=== PATIENT | female | born 1965 | race Caucasian/White ===

== ENCOUNTER 2020-11-16 08:57 | Outpatient (REF) | payer OTHER, SELFPAY ==
--- NOTE | 2020-11-16 09:03 | MM_ITS ---
EXAMINATION: MM SCREENING DIGITAL BREAST TOMOSYNTHESIS, BILATERAL CLINICAL INFORMATION: Screening. Asymptomatic. The lifetime risk of breast cancer based on the Tyrer-Cuzick Model is 7%. COMPARISON: Mammography: 05/03/2019, 04/30/2019, 03/15/2018, 02/17/2016, 11/05/2014 TECHNIQUE: Digital breast tomosynthesis is performed in both the craniocaudal and mediolateral oblique views along with computer-aided detection (CAD). Synthesized 2D images are generated from the tomosynthesis. FINDINGS: There are scattered areas of fibroglandular density (ACR BI-RADS breast composition Category b). There are no significant masses, abnormal calcifications, or other abnormalities. Nodular parenchymal asymmetry mid outer left breast on CC view is similar to prior studies. No developing density. The bilateral axilla and skin contours are unremarkable. MM/MM tomosynthesis screening BI IMPRESSION: No significant changes from prior studies. ASSESSMENT: BI-RADS 2: Benign RECOMMENDATION: Routine annual mammography screening. This patient's information was entered into a reminder system with a target due date for their next mammogram.
== END 2020-11-16 08:58 | disposition home or self-care (01) ==
LOC: HO.MAMMO 08:57
PROVIDERS: PCP Nurse Practitioner Family; Visit Provider Nurse Practitioner Family
DX: Z12.31 Encounter for screening mammogram for malignant neoplasm of breast (principal)
CPT/HCPCS: 77063; 77067

== ENCOUNTER 2021-01-12 08:26 | Outpatient (REF) | payer OTHER, SELFPAY ==
[2021-01-15 01:52] LABS: HPV mRNA E6/E7 rflx Not Detected (Not Detected)
== END 2021-01-12 08:27 | disposition home or self-care (01) ==
LOC: HO.LAB 08:26
PROVIDERS: PCP Nurse Practitioner Family; Visit Provider Obstetrics & Gynecology
DX: Z01.419 Encounter for gynecological examination (general) (routine) without abnormal findings (principal); Z11.51 Encounter for screening for human papillomavirus (HPV)
CPT/HCPCS: 36415; 87624; 88142

== ENCOUNTER 2021-07-01 10:59 | Emergency (ER) | payer OTHER, SELFPAY ==
--- NOTE | ~2021-07-01 | CT_ITS ---
EXAMINATION: CT HEAD WITHOUT CONTRAST CLINICAL INFORMATION: Headache, dizziness, and nausea. Hypertension. COMPARISON: November 19, 2012 TECHNIQUE: Contiguous axial imaging was performed from the skull base to vertex without intravenous administration of contrast. This CT examination was performed using dose optimization techniques as appropriate, variously including the following: *Automated exposure control *Adjustment of mA and/or kV according to patient size (this includes techniques or standardized protocols for targeted exams where dose is matched to indication/reason for exam; i.e. extremities or head) *Use of iterative reconstruction technique DLP: 717 mGy-cm FINDINGS: There is no evidence of acute intracranial hemorrhage or territorial infarction. No abnormal mass effect or midline shift is seen. Pimentel to white matter differentiation is well preserved. No extra-axial fluid collections are identified. The ventricular system is prominent for age but similar to previous study of November 19, 2012 There is no abnormal attenuation within the brain parenchyma. The osseous structures and soft tissues are normal. The mastoid air cells and visualized portions of the paranasal sinuses are well aerated. CT/CT head/brain wo con IMPRESSION: No acute intracranial pathology. Prominent ventricular system which may be related to some degree of generalized atrophy. No definite evidence to suggest hydrocephalus.
[2021-07-01 11:14] VITALS: BP 180/102; BP 199/103; PULSE 63; PULSE 70; RESP 16; TEMP 36.8; O2SAT 99; BMI 38.2
--- NOTE | 2021-07-01 11:28 | ECG_ITS ---
Test Reason : HIGH BP Blood Pressure : / mmHG Vent. Rate : 057 BPM Atrial Rate : 057 BPM P-R Int : 164 ms QRS Dur : 078 ms QT Int : 400 ms P-R-T Axes : 047 -21 017 degrees QTc Int : 389 ms Sinus bradycardia Otherwise normal ECG No previous ECGs available Referred By: Vivi Banuelos Electronically Signed By:Alhaji Gary
--- NOTE | 2021-07-01 12:00 | ED_ITS ---
HPI - General Adult General Chief complaint: General Medical Stated complaint: HIGH BP 170/102 Time Seen by Provider: 07/01/21 11:22 Source: patient and EMS Mode of arrival: EMS Limitations: no limitations History of Present Illness HPI narrative: 56-year-old female previously healthy here with complaints of generalized headache described as head pressure with nausea and dizziness for 3 days. Patient was found to be hypertensive by EMS. No history of high blood pressure. Does not take any blood pressure medications. She tells me that she has been under a lot of stress lately and feeling very anxious. She is in the process of taking care of her elderly parents and selling their home. She denies any associated vision changes, photophobia, neck pain, chest pain, shortness of breath. Related Data Previous Rx's Medication Instructions Recorded amlodipine 10 mg tablet (Norvasc) 10 mg PO DAILY #30 tab 07/01/21 finjxamafx-lmjcwyhlwcill-andwethc 1 cap PO Q6H PRN #10 cap 07/01/21 50 mg-300 mg-40 mg capsule (Fioricet) Allergies Allergy/AdvReac Type Severity Reaction Status Date / Time hydromorphone [From DILAUDID] Allergy Unknown NAUSEA & Unverified 08/13/20 14:46 VOMITING metoclopramide [From REGLAN] Allergy Unknown AGITATION Unverified 08/13/20 14:46 Pt states no known allergy to Allergy Unknown Uncoded 07/26/19 00:00 Review of Systems Review of Systems: Yes all other systems are reviewed and are negative Constitutional: Constitutional: Reports no additional constitutional complaints, Denies body ache(s), Denies chills, Denies fever(s), Reports headache(s) and Denies weakness Eyes: Eyes: Reports no additional eye complaints and Denies change in vision ENT: Reports system reviewed and no additional complaints, except as documented, Reports dizziness, Reports headache(s), Denies nasal congestion, Denies nasal discharge and Denies neck pain Cardiovascular: Cardiovascular: Reports no additional cardiovascular complaints, Denies chest pain, Denies leg edema and Denies dyspnea Respiratory: Respiratory: Reports no additional respiratory complaints, Denies cough and Denies dyspnea Gastrointestinal: Gastrointestinal: Reports no additional gastrointestinal complaints, Denies abdominal pain, Denies diarrhea, Reports nausea and Denies vomiting Genitourinary: Genitourinary: Reports no additional female genitourinary complaints and Denies urinary incontinence Musculoskeletal: Musculoskeletal: Reports no additional musculoskeletal complaints, Denies back pain, Denies arthralgias, Denies joint swelling, Denies neck pain, Denies numbness and Denies tingling Integumentary/Breasts: Skin/Breast: Reports system reviewed and no additional complaints, except as docu and Denies rash Neurologic: Reports system reviewed and no additional complaints, except as documented, Denies Abnormal speech present, Reports dizziness, Reports headache(s), Denies numbness, Denies tingling and Denies weakness [facility] Past Medical History Attestation statement: The following information was validated with the patient. Source: old records reviewed and nursing notes reviewed Surgical History H/O bilateral oophorectomy H/O knee surgery Social History Social History Advance Directives: No Advance Directives Information Provided: Yes Physical Exam Vital Signs: Vital Signs: Last Vital Signs Temp 98.3 F 07/01/21 11:14 Pulse 58 07/01/21 14:21 Resp 16 07/01/21 14:21 BP 152/86 H 07/01/21 14:37 Pulse Ox 99 07/01/21 14:21 Body Mass Index 38.2 Const: General: cooperative, healthy appearing, comfortable and no acute distress Orientation/consciousness: patient oriented x3 Limitations: no limitations HENMT: Head: Yes normal to inspection Ears: hearing grossly normal bilaterally and TM's normal bilaterally General nose exam: Normal external nose present Face and sinus: Yes normal facial exam Mouth: Normal oral and palatal mucosa present Throat: Yes posterior oropharynx normal, Yes tonsils normal and Yes uvula midline Eyes: General: appearance normal, both eyes and all related structures Visual Tolentino: normal visual tolentino by confrontation Alignment and Position: alignment normal Periorbital: periorbital findings normal Eyelids: Yes eyelids normal Conjunctivae: conjunctivae normal Sclerae: sclerae normal Corneas: corneas normal Pupils: Equal, round and reactive pupils present EOM: EOMs intact bilaterally Direct Ophthalmoscopy: normal light reflex Neck: Neck: Yes normal visual inspection, Yes full ROM, Yes no lymphadenopathy and Yes no meningeal signs Chest: Chest palpation & inspection: normal inspection of the chest Resp: Effort & Inspection: normal respiratory effort Auscultation: clear to auscultation bilaterally Cardio: Rate: regular rate Rhythm: regular rhythm Peripheral pulses: Peripheral pulses 2+ throughout GI: Inspection: Yes normal to inspection Palpation (GI): Soft to palpation and nontender Auscultation: normal bowel sounds : General: Yes no CVA tenderness Back/Spine/Pelvis: Back: no CVA tenderness Thoracic/Lumbar Spine: thoracic and lumbar spine normal to inspection Skin: General skin exam: no rashes or lesions noted Neuro: General: patient oriented x3, no meningeal signs, no focal motor deficits and normal sensation to monofilament Cranial nerves: Yes CN's II-XII intact bilaterally, Yes Equal, round and reactive pupils present, Yes Bilaterally intact EOM present, Yes Nystagmus not present and Yes Midline tongue present Cognition (Neuro): normal cognition Speech: No Abnormal speech present Gait exam (Neuro): Normal gait present Motor exam (neuro): 5/5 motor strength present throughout Sensory Exam: Normal double simultaneous stimulation for sensation Coordination: [id number]-[id number] test normal, ffph-yz-[id number] test normal and tandem gait normal Extrem: General: Yes normal to inspection Course Course Course Narrative: 56-year-old female previously healthy here with complaints of generalized headache described as pressure with nausea and intermittent dizziness for 3 days. Found to be hypertensive by EMS. No history of same. Not on any blood pressure medications. Normal neurological exam. Noted to be hypertensive on arrival 199/103. Does report increased stress and anxiety at home due to multiple life stressors. Will check labs, UA, EKG. Will give p.o. antihypertensive and reassess 1315-repeat blood pressure 172/95. Goal 160/80. Will give 5mg norvasc and re- assess. Continued head pressure, now more behind left eye with no visual changes. Will check Ct head to r/o ICH. Give PO fiorcet and re-asess. 1600-CT negative. Blood pressure 152/85. Head pressure is improved. Discussed with patient that blood pressure is likely multifactorial. Consider migraine, anxiety, stress, underlying hypertension. Will start her on 10 mg daily of Norvasc. She has follow-up on Monday with her primary care. Reviewed worrisome signs and symptoms and when to return to the emergency department. Comfortable discharge home. Medical Decision Making MDM Narrative Medical decision making narrative: Hypertensive urgency, migraine, anxiety Medical Records Medical records reviewed: Yes I reviewed the patient's medical records. Lab Data Lab results reviewed: Yes I reviewed the patient's lab results. Result diagrams: 07/01/21 12:12 07/01/21 12:12 Labs: Lab Results 07/01/21 07/01/21 07/01/21 Range/Units 12:12 12:12 12:12 WBC 5.5 (4.8-10.8) X10*3/uL RBC 4.57 (4.20-5.50) X10*6/uL Hgb 12.4 (12.0-16.0) g/dl Hct 38.3 (37-47) % MCV 83.8 (80-98) fL MCH 27.1 (27.0-33.0) pg MCHC 32.4 (31.0-35.0) g/dl RDW 13.8 (11.0-16.0) % Plt Count 162 (160-400) X10*3/uL MPV 12.0 (9.4-12.3) fL Immature Gran % (Auto) 0.2 (0.0-0.4) % Neut % (Auto) 62.7 (45-73) % Lymph % (Auto) 27.1 (20-40) % Larimer % (Auto) 7.6 (2-11) % Eos % (Auto) 2.0 (0-4) % Baso % (Auto) 0.4 (0-2) % Lymph # (Auto) 1.5 (1.2-4.9) X10*3/uL Larimer # (Auto) 0.4 (0.1-1.2) X10*3/uL Eos # (Auto) 0.1 (0.0-0.4) X10*3/uL Baso # (Auto) 0.0 (0.0-0.2) X10*3/uL Abs Immat Gran (auto) 0.01 (0.00-0.03) X10*3/uL Absolute Neuts (auto) 3.5 (2.0-8.3) X10*3/uL Absolute Nucleated RBC 0.000 (0.0-0.012) X10*3/uL Nucleated RBC % (auto) 0.0 (0.0-0.2) /100WBC Sodium 141 (135-145) mmol/L Potassium 4.0 (3.3-5.1) mmol/L Chloride 106 (96-108) mmol/L Carbon Dioxide 28 (22-29) mmol/L Anion Gap 11 L (12-20) BUN 21 H (9-16) mg/dL Creatinine 0.80 (0.5-1.4) mg/dL Estim Creat Clear Calc 95.2 Estimated GFR > 60 Random Glucose 102 (60-115) mg/dL Calcium 10.2 (8.4-10.2) mg/dL Total Bilirubin 0.3 (0.0-1.0) mg/dL Direct Bilirubin < 0.2 (0.0-0.5) mg/dL AST 21 (5-31) U/L ALT 23 (0-31) U/L Alkaline Phosphatase 73 (39-117) U/L Troponin I High Sens 4.0 (<3.5-17.0) ng/L Total Protein 6.6 (6.5-8.0) g/dL Albumin 3.9 (3.5-5.0) g/dL Urine Color Urine Appearance Urine pH (5.0-8.0) Ur Specific Billings (1.005-1.025) Urine Protein (NEG-TRACE) MG/DL Urine Glucose (UA) (NEG) MG/DL Urine Ketones (NEG) MG/DL Urine Blood (NEG) Urine Nitrite (NEG) Ur Leukocyte Esterase (NEG) 07/01/21 Range/Units 12:51 WBC (4.8-10.8) X10*3/uL RBC (4.20-5.50) X10*6/uL Hgb (12.0-16.0) g/dl Hct (37-47) % MCV (80-98) fL MCH (27.0-33.0) pg MCHC (31.0-35.0) g/dl RDW (11.0-16.0) % Plt Count (160-400) X10*3/uL MPV (9.4-12.3) fL Immature Gran % (Auto) (0.0-0.4) % Neut % (Auto) (45-73) % Lymph % (Auto) (20-40) % Larimer % (Auto) (2-11) % Eos % (Auto) (0-4) % Baso % (Auto) (0-2) % Lymph # (Auto) (1.2-4.9) X10*3/uL Larimer # (Auto) (0.1-1.2) X10*3/uL Eos # (Auto) (0.0-0.4) X10*3/uL Baso # (Auto) (0.0-0.2) X10*3/uL Abs Immat Gran (auto) (0.00-0.03) X10*3/uL Absolute Neuts (auto) (2.0-8.3) X10*3/uL Absolute Nucleated RBC (0.0-0.012) X10*3/uL Nucleated RBC % (auto) (0.0-0.2) /100WBC Sodium (135-145) mmol/L Potassium (3.3-5.1) mmol/L Chloride (96-108) mmol/L Carbon Dioxide (22-29) mmol/L Anion Gap (12-20) BUN (9-16) mg/dL Creatinine (0.5-1.4) mg/dL Estim Creat Clear Calc Estimated GFR Random Glucose (60-115) mg/dL Calcium (8.4-10.2) mg/dL Total Bilirubin (0.0-1.0) mg/dL Direct Bilirubin (0.0-0.5) mg/dL AST (5-31) U/L ALT (0-31) U/L Alkaline Phosphatase (39-117) U/L Troponin I High Sens (<3.5-17.0) ng/L Total Protein (6.5-8.0) g/dL Albumin (3.5-5.0) g/dL Urine Color YELLOW Urine Appearance CLEAR Urine pH 7.5 (5.0-8.0) Ur Specific Billings 1.015 (1.005-1.025) Urine Protein NEG (NEG-TRACE) MG/DL Urine Glucose (UA) NEG (NEG) MG/DL Urine Ketones NEG (NEG) MG/DL Urine Blood NEG (NEG) Urine Nitrite NEG (NEG) Ur Leukocyte Esterase NEG (NEG) Imaging Data CT scan - head: Attestation: I personally reviewed and interpreted this imaging study as follows: Radiologist's impression: FINDINGS: There is no evidence of acute intracranial hemorrhage or territorial infarction. No abnormal mass effect or midline shift is seen. Pimentel to white matter differentiation is well preserved. No extra-axial fluid collections are identified. The ventricular system is prominent for age but similar to previous study of November 19, 2012 There is no abnormal attenuation within the brain parenchyma. The osseous structures and soft tissues are normal. The mastoid air cells and visualized portions of the paranasal sinuses are well aerated. ? CT/CT head/brain wo con IMPRESSION: No acute intracranial pathology. ? Prominent ventricular system which may be related to some degree of generalized atrophy. No definite evidence to suggest hydrocephalus. ECG Data Attestation: I personally reviewed and interpreted this ECG as follows: Interpretation: Sinus bradycardia with a rate of 57, normal MI, normal QRS, nor mal QT Discharge Plan Discharge Clinical Impression: Hypertension, Migraine Patient Disposition: Home, Self-Care Instructions: Migraine Headache (ED), Hypertension (ED) Additional Instructions: Limit caffeine and salt in the diet Follow-up as scheduled with your primary care doctor Prescriptions: New amlodipine [Norvasc] 10 mg tablet 10 mg PO DAILY Qty: 30 RF: 0 nigeqpuutf-dwlyymptffwxy-hqfi [Fioricet] 50-300-40 mg capsule 1 cap PO Q6H PRN (Reason: pain) Qty: 10 RF: 0 Referrals: Edmund Ledesma [Primary Care Provider] - 2 days Interventions: ED Discharge Assessment Last Done: 07/01/21 16:12 Discharge Date/Time: 07/01/21 16:12
[2021-07-01 12:16] VITALS: BP 188/102; PULSE 56
[2021-07-01] MEDS: amLODIPine Besylate 5 MG TABLET PO ×2 (12:16→13:38)
[2021-07-01 12:17] LABS: MANUAL DIFF FLAG NO
[2021-07-01 12:18] LABS: Basophils Percent Auto 0.4 % (0-2); Eosinophils Absolute Auto 0.1 X10*3/uL (0.0-0.4); Hematocrit 38.3 % (37-47); Hemoglobin 12.4 g/dl (12.0-16.0); Imm Gran Abs Auto 0.01 X10*3/uL (0.00-0.03); Imm Gran Pct Auto 0.2 % (0.0-0.4); Lymphocytes Absolute Auto 1.5 X10*3/uL (1.2-4.9); Lymphocytes Percent Auto 27.1 % (20-40); Mean Corpuscular HGB Conc 32.4 g/dl (31.0-35.0); Mean Corpuscular Hemoglobin 27.1 pg (27.0-33.0); Mean Corpuscular Volume 83.8 fL (80-98); Monocytes Absolute Auto 0.4 X10*3/uL (0.1-1.2); Monocytes Percent Auto 7.6 % (2-11); Neutrophils Absolute Auto 3.5 X10*3/uL (2.0-8.3); Neutrophils Percent Auto 62.7 % (45-73); Platelet Count 162 X10*3/uL (160-400); Red Blood Count 4.57 X10*6/uL (4.20-5.50); Red Cell Distribution Width 13.8 % (11.0-16.0); White Blood Count 5.5 X10*3/uL (4.8-10.8)
[2021-07-01 12:50] VITALS: BP 172/103; PULSE 53; RESP 16; O2SAT 98
[2021-07-01 13:01] LABS: Alanine Aminotransferase 23 U/L (0-31); Albumin Level 3.9 g/dL (3.5-5.0); Alkaline Phosphatase 73 U/L (39-117); Anion Gap 11 (12-20); Aspartate Amino Transferase 21 U/L (5-31); Bilirubin Direct < 0.2 mg/dL (0.0-0.5); Bilirubin Total 0.3 mg/dL (0.0-1.0); Blood Urea Nitrogen 21 mg/dL (9-16); Calcium 10.2 mg/dL (8.4-10.2); Carbon Dioxide 28 mmol/L (22-29); Chloride 106 mmol/L (96-108); Creatinine Clr Calc Pharmacy 95.2; Estimated Glomerular Filt Rate > 60; Glucose Random 102 mg/dL (60-115); Sodium 141 mmol/L (135-145); Total Protein 6.6 g/dL (6.5-8.0)
[2021-07-01 13:02] LABS: Glucose Urine UA NEG (NEG); Leukocyte Esterase Urine NEG (NEG); Nitrite Urine NEG (NEG); PH 7.5 (5.0-8.0); Specific Gravity - Urine 1.015 (1.005-1.025); Urine Blood NEG (NEG); Urine Ketones NEG (NEG); Urine Protein NEG (NEG-TRACE)
[2021-07-01 13:04] LABS: Appearance Urine CLEAR; Color Urine YELLOW
[2021-07-01 13:28] VITALS: BP 172/95
[2021-07-01] MEDS: 0.9 % Sodium Chloride 1,000 ML 999 ML IV (13:38)
[2021-07-01] MEDS: Butalb/Acetamin/Caff 50/325/40 TABLET 1 TAB PO (13:39)
[2021-07-01 14:21] VITALS: BP 165/85; PULSE 58; RESP 16; O2SAT 99
[2021-07-01 14:37] VITALS: BP 152/86
== END 2021-07-01 16:12 | disposition home or self-care (01) ==
PROVIDERS: Nurse Practitioner Family; Emergency Provider Emergency Medicine; PCP Hospitalist
DX: G43.909 Migraine, unspecified, not intractable, without status migrainosus (principal); I10 Essential (primary) hypertension; R42 Dizziness and giddiness; Z79.899 Other long term (current) drug therapy
CPT/HCPCS: 36415; 70450; 80048; 80076; 81003; 84484; 85025; 93005; 99285

== ENCOUNTER 2021-12-06 10:57 | Outpatient (REF) | payer OTHER, SELFPAY ==
--- NOTE | ~2021-12-06 | MM_ITS ---
EXAMINATION: MM SCREENING DIGITAL BREAST TOMOSYNTHESIS, BILATERAL CLINICAL INFORMATION: Screening. Asymptomatic. The lifetime risk of breast cancer based on the Tyrer-Cuzick Model is 8%. COMPARISON: Mammography: 11/16/2020, 05/03/2019, 04/30/2019, 03/15/2018 TECHNIQUE: Digital breast tomosynthesis is performed in both the craniocaudal and mediolateral oblique views along with computer-aided detection (CAD). Synthesized 2D images are generated from the tomosynthesis. Additional right MLO view is provided. FINDINGS: There are scattered areas of fibroglandular density (ACR BI-RADS breast composition Category b). There are no significant masses, abnormal calcifications, or other abnormalities. There is no developing density. There is no architectural abnormality. No abnormal calcifications. The skin contours are unremarkable. MM/MM tomosynthesis screening BI IMPRESSION: No mammographic evidence of malignancy. ASSESSMENT: BI-RADS 1: Negative RECOMMENDATION: Routine annual mammography screening. This patient's information was entered into a reminder system with a target due date for their next mammogram.
== END 2021-12-06 10:58 | disposition home or self-care (01) ==
LOC: HO.MAMMO 10:57
PROVIDERS: Visit Provider Hospitalist
DX: Z12.31 Encounter for screening mammogram for malignant neoplasm of breast (principal)
CPT/HCPCS: 77063; 77067

== ENCOUNTER 2022-01-18 08:29 | Outpatient (REF) | payer OTHER, SELFPAY ==
[2022-01-18 10:30] LABS: HBsAGNum1 0.21 S/CO (0.00-0.99); HIV AB/AG Nonreactive (Nonreactive); HIV Num 1 0.07 S/CO (0.00-0.99); Hepatitis B Surface Antigen Negative (Negative)
[2022-01-18 10:33] LABS: ~HepC Num1 0.15 S/CO (0.00-0.79); ~Hepatitis C Antibody Nonreactive (Nonreactive)
[2022-01-18 13:46] LABS: CT PCR NOT DETECTED (Not Detect.); NG PCR NOT DETECTED (Not Detect.)
[2022-01-19 08:23] LABS: Syphilis Screen Nonreactive (Nonreactive)
[2022-01-19 11:17] LABS: BV Int Neg Control Negative (Negative); BV Int Pos Control Positive (Positive)
== END 2022-01-18 08:30 | disposition home or self-care (01) ==
LOC: HO.LAB 08:29
PROVIDERS: PCP Hospitalist; Visit Provider Obstetrics & Gynecology
DX: Z01.419 Encounter for gynecological examination (general) (routine) without abnormal findings (principal); R32 Unspecified urinary incontinence; Z11.8 Encounter for screening for other infectious and parasitic diseases; Z11.59 Encounter for screening for other viral diseases; Z11.4 Encounter for screening for human immunodeficiency virus [HIV]; Z90.722 Acquired absence of ovaries, bilateral; Z88.6 Allergy status to analgesic agent; Z88.8 Allergy status to other drugs, medicaments and biological substances
CPT/HCPCS: 36415; 86780; 86803; 87340; 87389; 87480; 87491; 87510; 87591; 87660

== ENCOUNTER 2022-12-20 09:09 | Outpatient (REF) | payer OTHER, SELFPAY ==
--- NOTE | ~2022-12-20 | MM_ITS ---
EXAMINATION: MM SCREENING DIGITAL BREAST TOMOSYNTHESIS, BILATERAL CLINICAL INFORMATION: Screening. Asymptomatic. The lifetime risk of breast cancer based on the Tyrer-Cuzick Model is 7%. COMPARISON: Mammography: December 06, 2021 and studies dating back to February 17, 2016 TECHNIQUE: Digital breast tomosynthesis is performed in both the craniocaudal and mediolateral oblique views along with computer-aided detection (CAD). Synthesized 2D images are generated from the tomosynthesis. FINDINGS: There are scattered areas of fibroglandular density (ACR BI-RADS breast composition Category b). There are no significant masses, abnormal calcifications, or other abnormalities. MM/MM tomosynthesis screening BI IMPRESSION: No significant changes from prior exam. ASSESSMENT: BI-RADS 1: Negative RECOMMENDATION: Routine annual mammography screening. This patient's information was entered into a reminder system with a target due date for their next mammogram.
== END 2022-12-20 09:10 | disposition home or self-care (01) ==
LOC: HO.MAMMO 09:09
PROVIDERS: PCP Physician Assistant; Visit Provider Physician Assistant
DX: Z12.31 Encounter for screening mammogram for malignant neoplasm of breast (principal)
CPT/HCPCS: 77063; 77067

== ENCOUNTER 2024-12-24 08:06 | Emergency (ER) | payer OTHER, SELFPAY ==
--- NOTE | ~2024-12-24 | CT_ITS ---
EXAMINATION: CT HEAD WITHOUT CONTRAST (STROKE PROTOCOL) CLINICAL INFORMATION: Stroke protocol. Left-sided vision changes and gait changes. COMPARISON: 07/01/2021 CT head. TECHNIQUE: Contiguous axial imaging was performed from the skull base to vertex without intravenous administration of contrast. This CT examination was performed using dose optimization techniques as appropriate, variously including the following: *Automated exposure control *Adjustment of mA and/or kV according to patient size (this includes techniques or standardized protocols for targeted exams where dose is matched to indication/reason for exam; i.e. extremities or head) *Use of iterative reconstruction technique FINDINGS: There is no evidence of intracranial hemorrhage or extra-axial fluid collection. There is no mass effect, or edema. No CT evidence of acute territorial infarct. Ventricles are mildly dilated out of proportion to sulcal and cisternal prominence, a stable finding which most likely represents central volume loss. No hydrocephalus. No midline shift. Negative hyperdense MCA sign. Negative insular ribbon sign. There are minimal supratentorial periventricular white matter hypodensities, in keeping with small vessel ischemia. Normal sella. Mild atheromatous calcification of the bilateral carotid siphons and V4 segments vertebral arteries bilaterally. Globes and orbital contents image normally. No extracranial soft tissue abnormalities. The paranasal sinuses, mastoid air cells, and tympanic cavities are normally aerated. No suspicious bony abnormalities. CT/CT head for STROKE IMPRESSION: 1. No acute intracranial abnormality. No CT evidence of acute territorial infarct, intracranial hemorrhage, mass effect, or edema. Electronically signed by: Cristian Monk MD 12/24/2024 09:28 AM [facility] [place]
--- NOTE | ~2024-12-24 | CT_ITS ---
EXAMINATION: CTA NECK WITH CONTRAST (STROKE) CTA BRAIN WITH CONTRAST (STROKE) CLINICAL INFORMATION: Suspect acute stroke. Left-sided visual changes, headache, gait instability. Assess for major vessel occlusion. COMPARISON: No prior CT angiography. TECHNIQUE: CT angiography head and neck performed following intravenous bolus administration 70 mL of Omnipaque 350 contrast. Helical imaging was performed in the axial plane from the aortic arch to the skull vertex. A [address] head was also obtained. The data was processed at the imaging technologist's workstation for generation of MIP sequences. Angled MIPs and volume rendered reformatted images were also generated at an offline 3D workstation. Stenoses are assessed in accordance with NASCET criteria unless otherwise indicated. This CT examination was performed using dose optimization techniques as appropriate, variously including the following: *Automated exposure control *Adjustment of mA and/or kV according to patient size (this includes techniques or standardized protocols for targeted exams where dose is matched to indication/reason for exam; i.e. extremities or head) *Use of iterative reconstruction technique FINDINGS: NECK CTA: -AORTIC ARCH: Normal in caliber. Three-vessel branching pattern. -GREAT VESSEL ORIGINS: Patent without stenoses. -RIGHT COMMON CAROTID ARTERY: Normal in course and caliber to the level of the bifurcation. -CERVICAL RIGHT INTERNAL CAROTID ARTERY: Normal opacification without focal stenosis or occlusion. Partial cervical loop. -LEFT COMMON CAROTID ARTERY: Normal in course and caliber to the level of the bifurcation. -CERVICAL LEFT INTERNAL CAROTID ARTERY: Normal opacification without focal stenosis or occlusion. Partial cervical loop. -CERVICAL RIGHT VERTEBRAL ARTERY: Codominant. Patent origin. Vessel is normal in course and caliber into the skull base. -CERVICAL LEFT VERTEBRAL ARTERY: Codominant. Patent origin. Vessel is normal in course and caliber into the skull base. OTHER, SOFT TISSUES: -No mass or abnormal adenopathy in the neck soft tissues. No abnormal fluid collections. -Mild heterogeneity of the thyroid gland without nodules seen. -Imaged lung apices are clear allowing for expiratory appearance. CTA OF THE BRAIN: -INTRACRANIAL INTERNAL CAROTID ARTERIES: Calcific atherosclerotic disease of the intracranial internal carotid arteries without occlusion or flow-limiting stenosis. -RIGHT ANTERIOR CEREBRAL ARTERY: Normal A1 segment. Normal arborization of the distal segments. -LEFT ANTERIOR CEREBRAL ARTERY: Normal A1 segment. Normal arborization of the distal segments. -ANTERIOR COMMUNICATING ARTERY: Normal. -RIGHT MIDDLE CEREBRAL ARTERY: Normal M1 segment of the MCA without focal stenosis or occlusion. Normal arborization of the distal segments. -LEFT MIDDLE CEREBRAL ARTERY: Normal M1 segment of the MCA without focal stenosis or occlusion. Normal arborization of the distal segments. -RIGHT VERTEBRAL ARTERY V4: Normal in course and caliber. There is a right AICA/PICA. -LEFT VERTEBRAL ARTERY V4: Normal in course and caliber. Extradural origin of the PICA branch. -BASILAR ARTERY: Normal without focal stenosis or occlusion. Normal appearance of the proximal superior cerebellar arteries. Normal basilar tip. -RIGHT POSTERIOR CEREBRAL ARTERY: Normal P1 segment. Normal opacification of the distal [employer] segments. -LEFT POSTERIOR CEREBRAL ARTERY: Normal P1 segment. Normal opacification of the distal [employer] segments. -POSTERIOR COMMUNICATING ARTERIES: Normal opacification of the superior sagittal, straight, transverse, and sigmoid sinuses. No venous thrombosis. CT/CT angio head neck STROKE IMPRESSION: 1. Major cervical and intracranial arterial vasculature shows no evidence of significant stenosis, occlusion, dissection, or aneurysm. Electronically signed by: Cristian Monk MD 12/24/2024 09:41 AM EST
[2024-12-24 08:08] VITALS: BP 148/91; PULSE 76; RESP 18; TEMP 36.9; O2SAT 98; BMI 40.0
--- NOTE | 2024-12-24 08:12 | ECG_ITS ---
Test Reason : r/o stroke Blood Pressure : */* mmHG Vent. Rate : 67 BPM Atrial Rate : 67 BPM P-R Int : 160 ms QRS Dur : 80 ms QT Int : 390 ms P-R-T Axes : 51 -17 18 degrees QTcB Int : 412 ms Normal sinus rhythm Normal ECG When compared with ECG of 01-Jul-2021 13:16, No significant change was found Referred By: Generic ED Physician Electronically Signed By: ADALBERTO WILSON
[2024-12-24 08:30] LABS: Glucose, Whole Blood 124 mg/dL (60-115)
--- NOTE | 2024-12-24 08:43 | ED_ITS ---
HPI - Headache General Chief Complaint: Headache Stated Complaint: Blurred vision, dizziness Time Seen by Provider: 12/24/24 08:28 History of Present Illness HPI Narrative: Patient is a 59-year-old female with a history of migraine headaches in the past. Presents today with having sudden onset of prism like vision out of the left eye. Followed by headache on the left side. Followed by balance being off. Patient was sent into the ED immediately. Has no history of diabetes positive history of hypertension no history of MD no family history of MD no history of smoking. No recreational drug use. Last known well time was by half an hour ago. Patient not on blood thinners. Related Data Previous Rx's ?Medication ?Instructions ?Recorded amlodipine 10 mg tablet (Norvasc) 10 mg PO DAILY #30 tabs 07/01/21 ibuprofen 400 mg tablet 400 mg PO Q6H PRN pain #20 tabs 12/24/24 ondansetron 4 mg disintegrating 4 mg PO TID PRN nausea and 12/24/24 tablet vomiting 5 days #10 tabs Allergies Allergy/AdvReac Type Severity Reaction Status Date / Time hydromorphone [From DILAUDID] Allergy Unknown NAUSEA & Verified 12/24/24 08:11 VOMITING metoclopramide [From REGLAN] Allergy Unknown AGITATION Verified 12/24/24 08:11 Review of Systems 2 Review of Systems: No fever no chills no chest pain or shortness of breath No focal weakness PMFSH Past Medical History Attestation statement: The following information was validated with the patient. Medical History Anxiety Surgical History Hx of section H/O bilateral oophorectomy H/O knee surgery Social History Social History Patient Tobacco Use Status: Never used Tobacco Smoked in Last 30 Days: No Use of substances other than those prescribed or required for medical reasons: No Advance Directives: Yes Advance Directives Information Provided: Yes Advance Directives on File: No Do you have a plan to hurt others: No Plan Patient : No Physical Exam 2 Vital Signs: Vital Signs: Last Vital Signs Temp 97.9 F 12/24/24 09:20 Pulse 64 12/24/24 09:20 Resp 18 12/24/24 09:20 BP 142/83 H 12/24/24 09:20 Pulse Ox 97 12/24/24 09:20 O2 Del Method Room Air 12/24/24 09:20 BMI result Body Mass Index 40.0 Appearance: Alert. Oriented X3. No acute distress. Eyes: Pupils equal, round and reactive to light. ENT: Pharynx normal. Neck: Normal inspection. Neck supple. No lymph nodes noted. No crepitus CVS: Normal heart rate and rhythm. Pulses normal. Normal S1 and S2 Respiratory: No respiratory distress. Breath sounds normal. No Wheezing. No rales Abdomen: Soft and nontender. No rigidity. No distention. good BS x4 Skin: Skin warm and dry. Normal skin color. Normal skin turgor. Extremities: No lower extremity edema. Neurovascular intact to all extremities. No Lacerations. No Rash Neuro: Oriented X 3. No motor deficit. No sensory deficit. Moving all extermities. No slurred speech NIH Stroke Scale Internal: Initial- Upon Arrival Time: 08:45 Level of Consciousness: Alert Level of Consciousness Questions: Answers both questions correctly Level of Consciousness Commands: Performs both tasks correctly Best Gaze: Normal Visual: No visual loss Facial Palsy: Normal Motor Arm (Right): No drift Motor Arm (Left): No drift Motor Leg (Right): No drift Motor Leg (Left): No drift Limb Ataxia: Absent Sensory: Normal Best Language: No aphasia Dysarthia: Normal Extinction and Inattention: No abnormality Score: 0 Medications Administered Discontinued Medications Generic Name Dose Route Start Last Admin Trade Name Allegra PRN Reason Stop Dose Admin Diphenhydramine HCl 25 mg 12/24/24 08:28 12/24/24 09:13 Diphenhydramine Hcl 50 Mg/Ml Vial IVPUSH 12/24/24 08:29 25 mg ONCE ONE Administration Iohexol 100 ml 12/24/24 08:55 12/24/24 08:56 Iohexol 350 Mg/Ml 100 Ml Infus..Btl IV 12/24/24 08:56 70 ml ONCE ONE Administration Ketorolac Tromethamine 30 mg 12/24/24 09:43 12/24/24 10:24 Ketorolac Tromethamine 30 Mg/Ml Vial IVPUSH 12/24/24 09:44 30 mg ONCE ONE Administration Prochlorperazine Edisylate 10 mg 12/24/24 08:30 12/24/24 09:13 Prochlorperazine Edisylate 10 Mg/2 Ml Vial IVPUSH 12/24/24 08:31 10 mg ONCE ONE Administration Medical Decision Making Medical Decision Making [facility] Narrative: A stroke alert was called initially as patient had some dizziness some changes in vision and some headache. I my exam patient's NIH stroke scale was 0. CT scan of the head by my interpretation was grossly negative for any acute evidence of bleeding. I reviewed radiology's reading of the CT head. CTA was reviewed by Radiology grossly was negative for any large vessel occlusion. Patient given migraine cocktail as she had change in vision followed by headache. Followed by dizziness. After the migraine cocktail was given including Compazine Benadryl Toradol. Symptomatically feels improved. Patient is sleeping. On repeat exam patient neurologically still intact. NIH stroke scale was unchanged at 0. More likely patient's symptoms consistent with migraine. Patient's sugar was normal there is no evidence for hypoglycemia. Electrolytes were otherwise unremarkable. Will discharge patient home. Patient has a history migraine . No fever no chills no signs to suggest meningitis. I am rechecking patient headache is now mostly gone. Dizziness is completely gone. Patient has no evidence for bleed because the CT head was grossly negative after about 45 minutes of headache. Patient's CT angio was negative for any acute evidence of aneurysm. She is currently in stable condition. Will discharge Differential Diagnosis Differential Diagnoses: The differential diagnosis associated with the presentation includes Migraine, stroke, vertigo versus bleed versus hypoglycemia Admission/Observation Consideration of admission/observation: Escalation of care including admission/observation considered Lab Data [facility] Lab Attestation statement: I reviewed the patient's lab results. 12/24/24 09:12 12/24/24 09:12 Labs: Lab Results 12/24/24 12/24/24 12/24/24 Range/Units 08:27 09:11 09:12 WBC 4.3 L (4.8-10.8) X10*3/uL RBC 4.35 (4.20-5.50) X10*6/uL Hgb 11.8 L (12.0-16.0) g/dl Hct 35.6 L (37.0-47.0) % MCV 81.8 (80.0-98.0) fL MCH 27.1 (27.0-33.0) pg MCHC 33.1 (31.0-35.0) g/dl RDW 14.4 (11.0-16.0) % Plt Count 156 L (160-400) X10*3/uL MPV 11.2 (9.4-12.3) fL Immature Gran % (Auto) 0.2 (0.0-0.4) % Neut % (Auto) 59.5 (45-73) % Lymph % (Auto) 27.9 (20-40) % [place] % (Auto) 9.6 (2-11) % Eos % (Auto) 2.6 (0-4) % Baso % (Auto) 0.2 (0-2) % Lymph # (Auto) 1.2 (1.2-4.9) X10*3/uL [place] # (Auto) 0.4 (0.1-1.2) X10*3/uL Eos # (Auto) 0.1 (0.0-0.4) X10*3/uL Baso # (Auto) 0.0 (0.0-0.2) X10*3/uL Abs Immat Gran (auto) 0.01 (0.00-0.03) X10*3/uL Absolute Neuts (auto) 2.5 (2.0-8.3) x10*3/uL Absolute Nucleated RBC 0.000 (0.0-0.012) X10*3/uL Nucleated RBC % (auto) 0.0 (0.0-0.2) /100WBC PT 11.5 (10.9-12.4) SEC INR 1.0 (0.9-1.1) Sodium 137 (135-145) mmol/L Potassium 4.5 (3.3-5.1) mmol/L Chloride 108 (96-108) mmol/L Carbon Dioxide 24 (22-29) mmol/L Anion Gap 10 L (12-20) BUN 15 (9-16) mg/dL Creatinine 0.78 (0.5-1.4) mg/dL Estim Creat Clear Calc 96.6 Estimated GFR > 60 POC Glucose 124 H (60-115) mg/dL Random Glucose 93 (60-115) mg/dL Calcium 8.7 D (8.4-10.2) mg/dL Magnesium 2.1 (1.6-2.6) mg/dL Total Bilirubin 0.3 (0.0-1.0) mg/dL AST 18 (5-31) U/L ALT 14 (0-31) U/L Alkaline Phosphatase 75 (39-117) U/L Total Protein 7.0 (6.5-8.0) g/dL Albumin 3.8 (3.5-5.0) g/dL Independent Interpretation I performed an independent interpretation of an: EKG (My interpretation patient's EKG showed a sinus rhythm heart rate is 70 TN QRS QTC normal no acute ST segment elevation) and CT Scan (My interpretation patient's CT head was grossly negative no acute evidence of bleeding) Radiology Impression Discussion of test interpretation with radiology: I have reviewed the radiologist's reading. Independent Historian Clinical information obtained from an independent historian. History obtained from or confirmed by: Other (Additional history obtained through daughter) External Record Review External record reviewed: Inpatient record Chronic Conditions Patient?s care impacted by: Hypertension Discharge Plan Discharge Clinical Impression: Migraine Patient Disposition: Home, Self-Care Instructions: Migraine Headache (ED) Prescriptions: New ibuprofen 400 mg tablet 400 mg PO Q6H PRN (Reason: pain) Qty: 20 0RF ondansetron 4 mg tablet,disintegrating 4 mg PO TID PRN (Reason: nausea and vomiting) 5 Days Qty: 10 0RF No Action amlodipine [Norvasc] 10 mg tablet 10 mg PO DAILY Qty: 30 0RF Referrals: Shaw Wheeler DO [Primary Care Provider] - Print Language: Cuban
--- OUTSIDE RECORDS SUMMARY | 2024-12-24 08:54 | XMS_ITS | Patient Health Record ---
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 Ac tive Reason For Referral No Information Medications Medication SIG (Take, Route, Frequency, Duration) Notes Start Date End Date Status Feldene 20 MG 1 capsule with food Orally Once a day for 30 day(s) 07/08/2022 Not-Taking Multivitamin Active Vitamin D Active iron Active amLODIPine Besylate 10 MG 1 tablet Orall y Once a day for 30 day(s) Active Social History Tobacco Use: Social History Observation Description Date Details (start date - stop date) Never Smoker NA - NA Tobacco Use/Smoking Question Answer Notes Are you a: nonsmoker Additional Findings: Tobacco Non-User Current no n-smoker Alcohol Screen Question Answer Notes Did you have a drink contain ing alcohol in the past year? Yes How often did you have a dri nk containing alcohol in the past year? Monthly or less (1 point) Points 1 Interpretation Negative Tobacco use other than smoking: Question Answer Notes Are you an other tobacco user? 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 Plan Of Treatment Pending Test Test Name Order Date X ray : Foot, left 3V 07/08/2022 X ray : Foot, right 3V 09/22/2020 [id number] TENDON SHEATH/LIGAMENT 1 15895, J0702- Neuroma/Injection 04/06/20 23 Insurance Providers Payer Name Payer Address Payer Phone Subscriber Number Group Number Insured Name Patient Relationship to Insured Coverage Start Date Coverage End Date [employer] ([facility]) [address] [place] [address] [phone] [id number] Ziggy Broussard Other Medical (General) History Medical History History ICD Code Anxiety Back,Hip,and Knee pain Diverticulosis Headaches/Migraines Chicken pox Surgical History Surgery Date(Month/Year) - Dcompression L shoulder surgery 2006 R wrist surgery/ tendon repair 2009 partial hysterectomy 2012 knee surgery, right meniscal tear 2015
--- OUTSIDE RECORDS SUMMARY | 2024-12-24 08:54 | XMS_ITS ---
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 No Vital Signs Height 5 ft 5 in in 11/08/2023 Weight 220 lbs 11/08/2023 BMI 36.61 kg/m2 11/08/2023 Blood pressure systolic 120 mm Hg 11/08/20 23 Blood pressure diastolic 80 mm Hg 023 Encounters Encounter Location Date Provider Diagnosis [facility] [place] [address] [place] [address] 11/08/2023 Alicia Ruthyyohana Ingrown nail L60.0 Assessments Encounter Date Diagnosis (ICD Code) Assessment Notes Treatment Notes Treatment Clinical Notes Section Notes 11/08/2023 Ingrown nail (ICD-10 - L60.0) Plan Of Treatment Next Appt Details Follow Up: prn, Reason: Procedure Notes * Category Sub-Category Detail Notes Nail Avulsion Procedure A fine sterile e levator was placed between the eponychium, nail fold, and nail plate to separate the structures. A sterile nail splitter, and/or sterile 316 blade, was then used to longitudinally section the nail along its entire length through the eponychium to the area under the nail fold. The offending portion of nail was from the nail bed with a rolling action and then removed with a hemostat. No underlying bone was identified. There was minimal bleeding as hemostasis was achieved through the temporary use of either a digital tourniquet or the aforementioned local with epinephrine. A bacitracin sterile dressing was applied. Local wound aftercare instructions were discussed and dispensed. The patient was informed of both conservative and future surgical procedures to prevent recurrence. Tylenol or Motrin was recommended for pain or discomfort (72997) , Pt DEFERS matricectomy Anesthesia 3cc of 1 percent Lid ocaine Plain local anesthesic utilizing aseptic technique Location Lateral nail border , TA Progress Notes * Gloria BROUSSARDDOB:1965 (58 yo F)Acc No.[id number]:11/08/2023 Progress Note Patient:Gloria Woodard Provider:?Alicia Moore DPM :1965???Age:58 Y???Sex:Female D ate:11/08/2023 Address:[address] [place] [address] Pcp:Kallie Guillen Subjective: * Chief Complaints: * ??? PCP: 08/2023Ingrown Nail * ROS:?General/Constitutional:?Nausea?denies.?Vomiting?denies.?Hunger Thirst?denies.?Loss appetite?denies.?Chills?denies.?Fatigue?denies.?Fever?denies.?Night Sweats?denies.?Unexplained weight loss?denies.?Unexplained weight gain?denies.?HEENTM:?Dentures?denies.?Dizziness?denies.?Glasses/contacts?denies.?Retinopathy?de nies.?Blurred/double vision?denies.?TMJ?denies.?Discharge/drainage?denies.?Implants?denies.?Sore throat?denies.?Dental implants?denies.?Hard of hearing ?denies.?Difficulty chewing/swallowing/speaking?denies.?Nose bleeds?denies.?Sore mouth?denies.?Respiratory:?On Oxygen?denies.?Pneumonia/pleurisy?denies.?Bronchitis?denies.?Emphysema?denies.?C oughing?denies.?Cough blood?denies.?Shortness of breath?denies.?Wheezing?denies.?Cardiovascular:?Pacemaker?denies.?MVP?denies.?WPW?denies.?CHF?denies.?Heart attack?denies.?Septal defect?denies.?Rapid beat?denies.?Chest pain ?denies.?Atrial Fib.?denies.?Murmur/Palpitations?denies.?Gastrointestinal:?Hemorrhoids?admits.?Stomach/Abdominal pain?denies.?Dark blood stool?denies.?Irritable bowel ?denies.?Constipation?denies.?Diarrhea?denies.?Hematology:?Swelling?admits.?Clots?denies.?Varicose Veins?denies.?Bruising?denies.?Bleeding problem?denies.?Genitourinary:?Blood urine?denies.?Frequent/Painfu/urination/bladder control?denies.?Kidney stones?denies.?Infection (UTI)?denies.?Nephropathy?denies.?sex trans dis (STD)?denies.?Prostate?denies.?Musculoskeletal:?Hammertoes?denies.?Bunions?denies.?Back Pain?denies.?Muscle Cramps/ Resting?denies.?Muscle cramps / walking?denies.?Generalized aches and pains?denies.?Weakness?denies.?Integ.:?Domingo?denies.?Scars?denies.?Corns/calluses?denies.?Ingrown nails?admits.?Painful nails?denies.?Open Sores?denies.?Rashes?denies.?Neurologic:?Difficulty sleeping?denies.?Brain disorder?denies.?Numbness?denies.?Balance trouble?denies.?Confusion?denies.?Fainting/blackouts?denies.?Tingling?denies.?Tr emors?denies.? * Medical History:? * Surgical History:? -Dcompression L shoulder surgery 2006R wrist surgery/ tendon repair 2009partial hysterectomy 2011knee surgery, right meniscal tear 2014 * Hospitalization/Major Diagno stic Procedure:?Denies Past Hospitalization * Family History:?Mother: aliv e, cancer, diagnosed with Family history of arthritis, Diabetic - NIDDM, Unspecified essential hypertension, Unspecified cerebral artery occlusion with cerebral infarction.?Father: alive, poor circulation, cancer, diagnosed with Family history of arthritis, Diabetic - NIDDM, Unspecified essential hypertension.? * Social History:?Tobacco Use:?Tobacco Use/Smoking?Are you a:?nonsmoker ?Additional Findings: Tobacco Non-User?Current non-smoker ?Tobacco use other than smoking?Are you an other tobacco user??No ???Drugs/Alcohol:?Drugs?Have you used drugs other than those for medical reasons in the past 12 months??No ?Alcohol Screen?Did you have a drink containing alcohol in the past year??Yes ?How often did you have a drink containing alcohol in the past year??Monthly or less (1 point) ?Points?1 ?Interpretation?Negative ???Miscellaneous:?Caffeine: yes, 1-2 cups per day. ?Children: yes, 2. ?Exercise: yes, walking,stationary bike. ?Marital status: . 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 * Medications:?TakingamLODIPin e Besylate 10 MG Tablet 1 tablet Orally Once a dayiron Vitamin D Multivitamin Taking amLODIPine Besylate 10 MG Tablet 1 tablet Orally Once a dayTaking iron Taking Vitamin D Taking Multivitamin Not-Taking/PRNFeldene 20 MG Capsule 1 capsule with food Orally Once a dayMedication List reviewed and reconciled with the patientNot-Taking/PRN Feldene 20 MG Capsule 1 capsule with food Orally Once a dayMedication List reviewed and reconciled with the patient * Allergies:?Reglan: CNSDilaud id: vomitingyes[Allergies Verified] Objective: * Vitals:?Ht:5 ft 5 in, Wt:220 , BMI:36.61, Shoe size: 8, BP:120/80 mm Hg, Ht-cm: 165.1 cm, Wt-k.79 kg. * Examination: ???Ingrown Nail: ?INSPECTION:?Reveals nail incurvation, pain on palpation, groove hypertrophy , Lateral nail border , TA.? Assessment: * Assessment: 1.?Ingrown nail - L60.0? Plan: * Treatment: * Procedures:?Nail Avulsion:?Location?Lateral nail border , TA.?Anesthesia?3cc of 1 percent Lidocaine Plain local anesthesic utilizing aseptic technique.?Procedure?A fine sterile elevator was placed between the eponychium, nail fold, and nail plate to separate the structures. A sterile nail splitter, and/or sterile 316 blade, was then used to longitudinally section the nail along its entire length through the eponychium to the area under the nail fold. The offending portion of nail was from the nail bed with a rolling action and then removed with a hemostat. No underlying bone was identified. There was minimal bleeding as hemostasis was achieved through the temporary use of either a digital tourniquet or the aforementioned local with epinephrine. A bacitracin sterile dressing was applied. Local wound aftercare instructions were discussed and dispensed. The patient was informed of both conservative and future surgical procedures to prevent recurrence. Tylenol or Motrin was recommended for pain or discomfort (70040) , Pt DEFERS matricectomy.? * Procedure Codes:?23412 Avuls ion Plate, Modifiers: XS * Follow Up:?prn * Images: * Sign off status: Completed true * Provider:?Alicia Moore DPM Date:? Generated for Candis patton/Freddie/Ainsley on:?12/24/2024 08:54 AM EST History and Physical Notes * Examination Category Sub-Category Detail Notes Category Not es Ingrown Nail INSPECTION: Reveals nail inc urvation, pain on palpation, groove hypertrophy , Lateral nail border , TA
--- OUTSIDE RECORDS SUMMARY | 2024-12-24 08:55 | XMS_ITS | Data Portability ---
Author Organization [facility], [address] Address [address] [place] [address] Care Team Providers Care Shot Peen Operator Name Role Phone PAUL MONTERO Primary Care Provider Assessment No assessment recorded. Plan of Treatment Reminders Order Date Submit Date Provider Last Modified By Organization Details Last Modified Time Details Appointments None recorded. Lab rapid flu (A+B) 2023 024 [facility], [address] [place] [address], [id number], 4 11:38:32 Referral None recorded. Procedures None recorded. Surgeries None recorded. Imaging XR, chest, 2 view 2022 023 [facility], [address] [place] [address], [address], 3 18:20:47 Medication Orders prednisone 20 mg tablet [id number], [address] [place], [address], 4 11:10:15 benzonatate 100 mg capsule 2022 023 [email or web address] [id number], [address] [place], [address], 4 11:10:40 doxycycline hyclate 100 mg capsule 2022 023 [email or web address] [facility]acy #[id number], [address] [place], [address], 11:09:53 amoxicillin 875 mg-joy m clavulanate 125 mg tablet 2023 024 [facility]acy #[id number], [address] [place], [address], 11:44:53 benzonatate 100 mg capsule 2023 024 [facility] #[id number], [address] [place], [address], 11:44:53 Patient TargetsNo targets recorded. Patient Instructions Encounter Date Encounter Id Patient Instructions Last Modified By Organization Details Last Modified Time 02/19/2023 [id number] cough: care instructions Not available 02/19/2023 17:27:05 01/05/2024 [id number] Fever: Care Instructions Not available 01/05/2024 11:38:31 viral infections : care instructions Not available 01/05/2024 11:38:42 01/15/2024 [id number] Acute Sinusitis: Care Instructions ronchaga Not available 01/15/2024 11:44:51 bronchitis: care instructions ronchaga Not available 01/15/2024 11:44:51 Reason for Referral None Reported. Results Created Date Observation Date Name Description Value Unit Range Abnormal Flag Note LastModifiedBy Organization Detail LastModifiedTime 01/05/2001/05/2024 rapid flu (A+B) Unknown Analyte negati ve Not Available [facility] [address] [place], [address], 01/05/2024 11:11:23 01/05/20 24 01/05/2024 rapid flu (A+B) Unknown Analyte negati ve Not Available [facility] [address] [place], [address], 01/05/2024 11:11:23 02/20/20 23 02/19/2023 XR, chest , 2 view No observ ation record ed. [facility] [address] [place], [address], 02/19/2023 18:21:39 Result Notes None recorded. 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 Procedures Surgical History Date Name Laterality Status Provider Name and Address Organization Details Recorded Time Partial hysterectomy completed ALISON TAD PA - [facility] 02/19/2023 17:03:54 Imaging Results Imaging Date Name Status LastModified by Organiz ation Details LastModified Time 02/19/2023 XR, chest, 2 view completed [facility] [address] [place], [address], 02/19/2023 18:21:39 Procedure Notes None recorded. Medical Equipment None Reported. Allergies Allergen ID Allergen Name Allergen Category Reaction Reaction Severity Criticality Documentation Date Start Date Code Code System Note Provider Name and Address Organization Details Recorded Time 313696 Reglan medicatio n other Not available Not available 02/19/2023 9230 RxNorm ALISON TAD sanna PA - [facility] 3 17:00:18 [id number] Dilaudid medicatio n headache Not available Not available 02/19/2023 24042 3 RxNorm ALISON isidro, PA - [facility] 3 17:00:31 Medications Name Sig Start Date Stop Date Status Note LastModified by Organization Details LastModified Time doxycycline hyclate 100 mg capsule TAKE 1 CAPSULE BY MOUTH TWICE A DAY WITH MEALS FOR 10 DAYS 01/05 completed Not Available Not Available Not Available ketoconazol e 2 % shampoo APPLY TO SCALP AND LET SIT FOR 5-10 MINUTES 2-3X PER WEEK. ALTERNATE WITH OTHER OTC SHAMPOO REGIMEN. active Not Available Not Available No t Available trazodone 50 mg tablet TAKE 1 TABLET BY MOUTH EVERYDAY AT BEDTIME 02/19 completed Not Available Not Available Not Available azithromyci n 250 mg tablet TAKE 2 TABLETS BY MOUTH TODAY, THEN TAKE 1 TABLET DAILY FOR 4 DAYS 01/05 completed Not Available Not Available Not Available ondansetron HCl 8 mg tablet TAKE 1 TABLET BY MOUTH TWICE A DAY NEEDED 01/05 completed Not Available Not Available Not Available prednisone 20 mg tablet TAKE 1 TABLET BY MOUTH EVERY DAY FOR 5 DAYS 01/05 completed Not Available Not Available Not Available clindamycin HCl 150 mg capsule TAKE 2 CAPSULES NOW, THEN TAKE 1 CAPSULE EVERY 6 HOURS UNTIL FINISHED. 02/19 completed Not Available Not Available Not Available sulfamethox azole 800 mg-trimetho prim 160 mg tablet TAKE 1 TABLET BY MOUTH TWICE A DAY FOR 3 DAYS 02/19 completed Not Available Not Available Not Available lorazepam 0.5 mg tablet TAKE 1 TABLET BY MOUTH EVERY 8 HOURS NEEDED FOR ANXIETY 02/19 completed Not Available Not Available Not Available amlodipine 10 mg tablet TAKE 1 TABLET BY MOUTH EVERY DAY active Not Available Not Available No t Available benzonatate 100 mg capsule Take 1 capsule 3 times a day by oral route. 2023 active Not Available Not Available Not Avai lable polymyxin B sulfate 10,000 unit-trimet hoprim 1 mg/mL eye drops 1 DROPS EYES, BOTH EVERY 3 HOURS,X7 DAYS 01/05 completed Not Available Not Available Not Available codeine 10 mg-guaifene sin 100 mg/5 mL oral liquid TAKE 10 ML BY MOUTH EVERY 4 HOURS NEEDED FOR COUGH 01/05 completed Not Available Not Available Not Available fluocinolon e 0.01 % topical solution PLEASE SEE ATTACHED FOR DETAILED DIRECTION S active Not Available Not Available No t Available estradiol 0.01% (0.1 mg/gram) vaginal cream PLEASE SEE ATTACHED FOR DETAILED DIRECTION S active Not Available Not Available No t Available albuterol sulfate HFA 90 mcg/actuati on aerosol inhaler TAKE 2 PUFFS BY MOUTH EVERY 6 HOURS NEEDED OR WHEEZING OR SHORTNESS OF BREATH 02/19 completed Not Available Not Available Not Available ondansetron 4 mg disintegrat ing tablet DISSOLVE 1 TABLET BY MOUTH 3 TIMES A DAY NEEDED 01/05 completed Not Available Not Available Not Available piroxicam 20 mg capsule TAKE 1 CAPSULE BY MOUTH EVERY DAY WITH FOOD FOR 30 DAYS 02/19 completed Not Available Not Available Not Available fluticasone propionate 50 mcg/actuati on nasal spray,suspe nsion SPRAY 2 SPRAYS IN EACH NOSTRIL ONCE A DAY FOR ALLERGY active Not Available Not Available No t Available sertraline 50 mg tablet TAKE 1.5 TABLET BY MOUTH DAILY active Not Available Not Available No t Available amoxicillin 875 mg-potassiu m clavulanate 125 mg tablet Take 1 tablet twice a day by oral route for 10 days. 2023 active Not Available Not Available Not Avai lable clindamycin 1 % lotion APPLY TWICE DAILY TO AFFECTED AREAS ON THE CHIN AND LOWER EXTREMITI ES active Not Available Not Available No t Available nitrofurant oin monohydrate /macrocryst als 100 mg capsule 01/05 completed Not Available Not Available Not Available Vagifem 10 mcg vaginal tablet INSERT 1 TABLET VAGINALLY EVERY DAY FOR 14 DAYS active Not Available Not Available No t Available Myrbetriq 25 mg tablet,exte nded release TAKE 1 TABLET BY MOUTH EVERY DAY DO NOT CRUSH OR CHEW 02/19 completed Not Available Not Available Not Available Myrbetriq 50 mg tablet,exte nded release TAKE 1 TABLET BY MOUTH EVERY DAY DO NOT CRUSH OR CHEW 02/19 completed Not Available Not Available Not Available Gemtesa 75 mg tablet TAKE 1 TABLET BY MOUTH EVERY DAY active Not Available Not Available No t Available Flowflex COVID-19 Antigen Home Test kit USE DIRECTED ON BOX. 02/19 completed Not Available Not Available Not Available Vitals Date Recorded Body height Provider Name an d Address Organization Details Last Updated DateTime 02/19/2023 165.1 cm ALISON MISHRA PA - [facility] 02/19/2023 17:06:21 Date Recorded Body mass index (BMI) Body weight Provider Name and Address Organization Details Last Updated DateTime 02/19/2023 39.1 kg/m2 749701.21 g ALISON MISHRA PA - [facility] 02/19/2023 17:06:25 Date Recorded Oxygen saturation Oxygen saturation in Arterial blood by Pulse oximetry Provider Name and Address Organization Details Last Updated DateTime 02/19/2023 97 % 97 % ALISON MISHRA PA - [facility] 02/19/2023 17:06:37 Date Recorded Pain severity - 0-10 verbal numeric rating [Score] - Reported Provider Name and Address Organization Details Last Updated DateTime 02/19/2023 2 ALISON MISHRA PA - [facility] 02/19/2023 17:06:41 Date Recorded Heart rate Provider Name an d Address Organization Details Last Updated DateTime 02/19/2023 66 /min ALISON MISHRA PA - [facility] 02/19/2023 17:06:47 Date Recorded Respiratory rate Provider Name a nd Address Organization Details Last Updated DateTime 02/19/2023 16 /min ALISON MISHRA PA - [facility] 02/19/2023 17:06:51 Date Recorded Body temperature Provider Name a nd Address Organization Details Last Updated DateTime 02/19/2023 98.4 [degF] ALISON MISHRA PA - [facility] 02/19/2023 17:06:58 Date Recorded Body height Provider Name an d Address Organization Details Last Updated DateTime 01/05/2024 165.1 cm NEGRA FLANAGAN PA - [facility] 01/05/2024 11:07:01 Date Recorded Body mass index (BMI) Body weight Provider Name and Address Organization Details Last Updated DateTime 01/05/2024 39.1 kg/m2 781217.21 g NEGRA MASHA PA - [facility] 01/05/2024 11:08:41 Date Recorded Pain severity - 0-10 verbal numeric rating [Score] - Reported Provider Name and Address Organization Details Last Updated DateTime 01/05/2024 8 NEGRA FLANAGAN PA - [facility] 01/05/2024 11:08:59 Date Recorded Respiratory rate Provider Name a nd Address Organization Details Last Updated DateTime 01/05/2024 18 /min NEGRA FLANAGAN PA - [facility] 01/05/2024 11:12:16 Date Recorded Body temperature Provider Name a nd Address Organization Details Last Updated DateTime 01/05/2024 97.5 [degF] NEGRA FLANAGAN PA - [facility] 01/05/2024 11:12:19 Date Recorded Oxygen saturation Oxygen saturation in Arterial blood by Pulse oximetry Provider Name and Address Organization Details Last Updated DateTime 01/05/2024 95 % 95 % NEGRA FLANAGAN PA - [facility] 01/05/2024 11:12:40 Date Recorded Heart rate Provider Name an d Address Organization Details Last Updated DateTime 01/05/2024 93 /min NEGRA FLANAGAN PA - [facility] 01/05/2024 11:12:43 Date Recorded Body height Provider Name an d Address Organization Details Last Updated DateTime 01/15/2024 165.1 cm NEGRA FLANAGAN PA - [facility] 01/15/2024 11:01:45 Date Recorded Body mass index (BMI) Body weight Provider Name and Address Organization Details Last Updated DateTime 01/15/2024 39.1 kg/m2 420115.21 g NEGRA FLANAGAN PA - [facility] 01/15/2024 11:01:50 Date Recorded Pain severity - 0-10 verbal numeric rating [Score] - Reported Provider Name and Address Organization Details Last Updated DateTime 01/15/2024 7 NEGRA FLANAGAN PA - [facility] 01/15/2024 11:05:27 Date Recorded Respiratory rate Provider Name a nd Address Organization Details Last Updated DateTime 01/15/2024 18 /min NEGRA FLANAGAN PA - [facility] 01/15/2024 11:06:14 Date Recorded Body temperature Provider Name a nd Address Organization Details Last Updated DateTime 01/15/2024 97.5 [degF] NEGRAAj FLANAGAN PA - [facility] 01/15/2024 11:06:29 Date Recorded Oxygen saturation Oxygen saturation in Arterial blood by Pulse oximetry Provider Name and Address Organization Details Last Updated DateTime 01/15/2024 95 % 95 % NEGRA FLANAGAN PA - [facility] 01/15/2024 11:07:02 Date Recorded Heart rate Provider Name an d Address Organization Details Last Updated DateTime 01/15/2024 86 /min NEGRA FLANAGAN PA - [facility] 01/15/2024 11:07:06 Date Recorded Systolic blood pressure Diastolic blood pressure Provider Name and Address Organization Details Last Updated DateTime 02/19/2023 115 mm[Hg] 77 mm[Hg] ALISON MCCAULEYAU PA - [facility] 02/19/2023 17:06:18 Date Recorded Systolic blood pressure Diastolic blood pressure Provider Name and Address Organization Details Last Updated DateTime 01/05/2024 132 mm[Hg] 89 mm[Hg] NEGRA FLANAGAN PA - [facility] 01/05/2024 11:13:53 Date Recorded Systolic blood pressure Diastolic blood pressure Provider Name and Address Organization Details Last Updated DateTime 01/15/2024 130 mm[Hg] 88 mm[Hg] NEGRA FLANAGAN PA - [facility] 01/15/2024 11:08:00 Social History Question Answer Notes LastModified by Organizat ion Details LastModified Time Tobacco Smoking Status Never Smoker ALISON MISHRA sanna PA - [facility] 02/19/2023 17:03:37 What Is Your Level Of Alcohol Consumption? None Information not available 02/19/2023 Are You Currently Employed? Yes Information not available 02/19/2023 Do You Use Any Illicit Or Recreational Drugs? No Information not available 02/19/2023 Have You Recently Traveled Abroad? No Information not available 02/19/2023 Do You Or Have You Ever Used Any Other Forms Of Tobacco Or Nicotine? No Information not available 02/19/2023 Sex: Unknown Functional Status None recorded. Mental Status None recorded. Family History Relationship Description Onset Age of this Age Resolved Age Notes LastModified by Organization Details LastModified Time Father Malignant tumor of prostate Not available 2022 17:02:43 Father Diabetes mellitus Not available 2022 17:03:20 Mother Diabetes mellitus Not available 2022 17:03:20 Medical History No medical history recorded. Gynecological History Statement/Question Response Date of LMP Obstetrics History GPAL:G 0 P 0 0 0 0 Past Encounters Encounter ID Performer Location Encounter Start Date Encounter Closed Date Diagnosis/Indication Diagnosis SNOMED-CT Code Diagnosis ICD10 Code Diagnosis Note [id number] [address] [facility] [place] [id number] 05/17/2017 15:50:53 05/17/2017 16:42:49 [id number] 20[address]ok [address] [place] [id number] 01/03/2017 10:11:13 01/03/2017 11:42:42 [id number] [facility] [address] [place] [phone] 09/21/2022 08:20:58 09/21/2022 09:19:47 [id number] [address] [place] [phone] 02/07/2020 18:00:54 02/07/2020 18:33:58 [id number] Jalen Martinezok chuyr [address] [place] [id number] 05/21/2022 08:45:50 05/21/2022 10:37:28 [id number] Elliot Bernardo DO _[facility] [address] [place] [phone] 02/19/2023 16:35:33 02/19/2023 17:38:00 Cough 11656806 R05.9 Given Hx and Sx will Rx Abx and prednisone Tessalon perles prn coughTrial of mucinex prn congestion Humidified airrest, fluidstyle nol/ibu prn Patient advised to follow up as needed for worsening symptoms or no improvemen t. Discussed concerning red flags with patient and reasons to follow up in the Emergency Department urgently. [id number] Elliot Bernardo DO _[facility] [address] [facility] [address] 01/05/2024 10:49:23 01/05/2024 11:51:05 Fever 195004360 R50.9 Viral infectionR ecommend plenty of fluidsTyle nol, Motrin for pain/fever Humidifier Nasal saline sprayNo need for antibiotic may last up to 2 weeksCall or RTC if worsening cough, SOB, high fever, rash, n/v/d and unable to hydrate [id number] [place] [address] [facility] [place] [address] 01/15/2024 10:08:01 01/15/2024 11:48:30 Acute bacterial sinusitis 40834614 J01.90 Based on your presentati on and exam, you are being diagnosed with Sinusitis. Rhinosinus itis is most often viral and will resolve on its own in 7-10 days. Symptoms that last longer than 2 weeks an antibiotic could be considered . Based on your presentati on, and antibiotic was written. The following are my recommenda tions to help your symptoms and to allow your condition to improve:1. Drink plenty of fluids while you are ill- stay hydrated2. Rest - don't overexert yourself - this includes sports and any gym routines.3 . I suggest taking an antihistam ine - like Claritin, Zyrtec, or Benedryl4. If you take OTC cold medication I would recommend Shanthi-Selze r Cold/Cough .5. Mucinex with a lot of water is ok - if you are having trouble clearing your nasal passages of mucous. However, if you start to cough then discontinu e - this can increase coughing due to a watery post nasal drip.6. Saline Nasal [place] is recommende d. Since an antibiotic was prescribed you need to complete the full course - this is important so you don't develop any antibiotic resistance to future infections . I advise taking a Probiotic like Florastor since you are on an antibiotic - this will help you re-coloniz e your body with the good bacteria. Typically, it will take 6 months for you to restore your normal body hong after an antibiotic . Don't hesitate to be seen again if you develop:1. Fever > 100.52. Worsening Headache3. Stiff Neck4. Worsening Cough or Shortness of breath5. Visual Changes. The antibiotic should start to work in 4-5 days. You may not notice immediate response. Thank you for using [facility] today, please feel free to contact our office if you have any questions or concerns. Bronchitis 71350262 J40 Acute bronchitis is a common clinical condition characteri zed by an acute onset but persistent cough, with or without sputum production . It is typically self-limit ed, resolving within one to three weeks. Symptoms result from inflammati on of the lower respirator y tract and are most frequently due to viral infection. Treatment is focused on patient education and supportive care. Antibiotic s are not needed for the great majority of patients with acute bronchitis but are greatly overused for this condition. Reducing antibiotic use for acute bronchitis is a national and internatio [facility] health care priority. In most patients, the cough persists for 1 to 3 weeks, with a average duration of 18 days. The cough may be associated with either purulent or nonpurulen t sputum production The presence of purulent sputum is a nonspecifi c finding and does not appear to be predictive of bacterial infection or that antibiotic s are needed. For the great majority of patients, use of antibiotic s does not hasten recovery or prevent complicati ons but puts patients at increased risk of adverse effects including potentiall y severe complicati ons such as Clostridio ides difficile infection and anaphylaxi s. Non-Pharma cological treatment for coughin . Throat lozenges2. Hot tea3. Honey4. Smoking cessation5 . Avoidance of secondhand smoke. Pharmacolo gical Treatment: 1. Robatussin or Guafenasin 2. Antihistam ines3. Dextrometh oraphen I would plan on being seen again if any of the following symptoms develop:1. Fever (100.5)2. Shortness of breath3. Wheezing4. Worsening Cough. I would go to the ER if you develop:1. Severe Shortness of breath2. Chest Pain3. Wheezing4. Coughing up Blood Health Concerns Section Related Observation LastModified by Organization Detai ls LastModified Time None Recorded Concern Status LastModified by Organization Details LastModified Time None Recorded Advance Directives Directive None Recorded Payers Encounter Date Sequence Insurance Name Policy Number Policy Miller Covered Member ID Miller Member ID Guarantor Name 05/21/2022 1 [employer] [id number] 1 Ziggy Soto'Neill [id number] Gloria Nunez Mims 09/21/2022 1 [employer] [id number] 1 Ziggy Soto'Neill [id number] Gloria Nunez Mims 02/19/2023 1 [employer] [id number] 1 Ziggy Soto'Neill [id number] Gloria Nunez Mims 01/05/2024 1 [employer] [id number] 1 Ziggy Soto'Neill [id number] Gloria Nunez Mims 01/15/2024 1 [employer] [id number] 1 Ziggy Soto'Neill [id number] Gloria Nunez Mims Notes Date Note Type Note Provider Name and Address Organization Details Recorded Time 02/19/2023 text/html CoughReported bypatient.Notes:57 yo female c/o cough x 5days post nasal drip, head pressurecough worseningdrynon smokerno h/o asthma covid negative at home this morning No feverNo chillsNo difficulty breathing or respiratory distressNo CPNo ear painNo sore throatNo Abdominal painNo nauseaNo vomitingNp diarrheaNo myalgiaNo fatigueNo rashNo HANo dizzinessNo recent travelNo known sick contacts Elliot Bernardo, [address] [facility] [place], [address], [place] [facility] 02/19/2023 17:35:09 01/05/2024 text/html FeverReported bypatient.Notes:58 yo female c/o 1 d body aches+ fever 100.9 last night+ Fajardo+ cough+ congestion nonsmokerno h/o asthmas/o covid vaxcovid test negative last night grandson at home with flu + chills+ nauseaNo vomitingNo wheezeNo difficulty breathing or respiratory distressNo CPNo sinus painNo ear painNo sore throatNo Abdominal painNo diarrheaNo rashNo dizzinessNo recent travel Elliot Bernardo DO [address] [facility] [place], [address], [place] [facility] 01/05/2024 11:41:13 01/15/2024 text/html Sinus Complaints UCReported bypatient.Location:si nus pain;facial pain;sinus pressure Associated Symptoms:no difficulty breathing; no nausea or vomiting; No post nasal drip; no nasal passage blockage; no ear fullness; no cough;nasal discharge from both nostrils;fever/chills ;sore throat Onset/Timing:initiall y started 10days ago; progressively worse over last 3 Severity:mild Context:no recent sick contacts Risk Factors:no current smoking or tobacco use JANE ORTEGA NP [address] [place], [address], [place] - [facility] 01/15/2024 11:49:25 OBGyn Episode No OBEpisode recorded.
[2024-12-24] MEDS: iohexoL 350 MG/ML 100 ML INFUS..BTL IV (08:56)
[2024-12-24] MEDS: diphenhydrAMINE HCL 50 MG/ML VIAL 25 MG IVPUSH (09:13)
[2024-12-24] MEDS: Prochlorperazine Edisylate 10 MG/2 ML VIAL IVPUSH (09:13)
[2024-12-24 09:15] LABS: MANUAL DIFF FLAG NO
[2024-12-24 09:17] LABS: Basophils Percent Auto 0.2 % (0-2); Eosinophils Absolute Auto 0.1 X10*3/uL (0.0-0.4); Eosinophils Percent Auto 2.6 % (0-4); Hematocrit 35.6 % (37.0-47.0); Hemoglobin 11.8 g/dl (12.0-16.0); Imm Gran Abs Auto 0.01 X10*3/uL (0.00-0.03); Imm Gran Pct Auto 0.2 % (0.0-0.4); Lymphocytes Absolute Auto 1.2 X10*3/uL (1.2-4.9); Lymphocytes Percent Auto 27.9 % (20-40); Mean Corpuscular HGB Conc 33.1 g/dl (31.0-35.0); Mean Corpuscular Hemoglobin 27.1 pg (27.0-33.0); Mean Corpuscular Volume 81.8 fL (80.0-98.0); Mean Platelet Volume 11.2 fL (9.4-12.3); Monocytes Absolute Auto 0.4 X10*3/uL (0.1-1.2); Monocytes Percent Auto 9.6 % (2-11); Neutrophils Absolute Auto 2.5 x10*3/uL (2.0-8.3); Neutrophils Percent Auto 59.5 % (45-73); Platelet Count 156 X10*3/uL (160-400); Red Blood Count 4.35 X10*6/uL (4.20-5.50); Red Cell Distribution Width 14.4 % (11.0-16.0); White Blood Count 4.3 X10*3/uL (4.8-10.8)
[2024-12-24 09:20] VITALS: BP 142/83; PULSE 64; RESP 18; TEMP 36.6; O2SAT 97
[2024-12-24 09:24] LABS: Prothrombin Time 11.5 SEC (10.9-12.4)
--- NOTE | 2024-12-24 09:26 | PC.NURSE ---
pt reports that at 0720 started with a sever headache on her right side of the head with vision disturbances states having black spots/dots going through, states hx of migraines but this feels different, the pain started run upper her right side of neck and head, with some intermitted nausea and on the way to the ED started with dizziness-swaying, all neuro's intact, no facial droop present, speech is clear, no hand drift, grasp strong and equal on both sided and moving all extremities, vs stable and ns on the monitor
[2024-12-24 09:41] LABS: Alanine Aminotransferase 14 U/L (0-31); Albumin Level 3.8 g/dL (3.5-5.0); Alkaline Phosphatase 75 U/L (39-117); Anion Gap 10 (12-20); Aspartate Amino Transferase 18 U/L (5-31); Bilirubin Total 0.3 mg/dL (0.0-1.0); Blood Urea Nitrogen 15 mg/dL (9-16); Calcium 8.7 mg/dL (8.4-10.2); Carbon Dioxide 24 mmol/L (22-29); Chloride 108 mmol/L (96-108); Creatinine Clr Calc Pharmacy 96.6; Estimated Glomerular Filt Rate > 60; Glucose Random 93 mg/dL (60-115); Magnesium 2.1 mg/dL (1.6-2.6); Potassium 4.5 mmol/L (3.3-5.1); Sodium 137 mmol/L (135-145)
[2024-12-24] MEDS: Ketorolac Tromethamine 30 MG/ML VIAL IVPUSH (10:24)
[2024-12-24 12:27] VITALS: BP 137/87; PULSE 72; RESP 15; TEMP 37; O2SAT 94
== END 2024-12-24 12:28 | disposition home or self-care (01) ==
PROVIDERS: Emergency Provider Emergency Medicine Emergency Medical Services; PCP Family Medicine
DX: G43.909 Migraine, unspecified, not intractable, without status migrainosus (principal); R42 Dizziness and giddiness; R29.700 NIHSS score 0; I10 Essential (primary) hypertension; Z79.899 Other long term (current) drug therapy
CPT/HCPCS: 36415; 70450; 70496; 70498; 80053; 82947; 83735; 85025; 85610; 93005; 96374; 96375; 99284; 99285; J0737; J1200; J1885; Q9967

== ENCOUNTER → 2024-12-24 08:12 | Outpatient (BNV) | payer OTHER, SELFPAY | PROVIDERS: Emergency Provider Emergency Medicine Emergency Medical Services; PCP Family Medicine; Visit Provider Internal Medicine | DX: I63.9 Cerebral infarction, unspecified (principal) | CPT/HCPCS: 93010 ==

== ENCOUNTER → 2024-12-24 08:28 | Outpatient (BNV) | payer OTHER, SELFPAY | PROVIDERS: Emergency Provider Emergency Medicine Emergency Medical Services; PCP Family Medicine; Visit Provider Radiology Diagnostic Radiology | DX: I63.9 Cerebral infarction, unspecified (principal) | CPT/HCPCS: 70450; 70496; 70498 ==